=== PATIENT | male | born 1945 | race American Indian/Alaskan Native ===

== ENCOUNTER 2017-12-22 12:12 | Outpatient (CLI) | payer MEDICARE, OTHER ==
--- NOTE | 2017-12-22 22:45 | Cat Scan Report ---
FINAL REPORT EXAM: CT CHEST WO CON HISTORY: RETROCARDIAC DENSITY/R09.89 TECHNIQUE: CT chest without contrast PRIORS: None. FINDINGS: There is partial limitation due to motion artifact. No evidence of mediastinal pathologic lymph node enlargement Heart and great vessels are unremarkable. The aorta is normal in caliber. No focal pulmonary infiltrate identified. No pleural fluid collection seen. No acute pulmonary abnormality noted. Dense material noted layering within the gallbladder. IMPRESSION: No acute abnormality identified in the chest Sludge or small stones within the gallbladder noted
== END 2017-12-22 12:13 | disposition home or self-care (01) ==
LOC: CT 12:12
PROVIDERS: ATTEND Internal Medicine Pulmonary Disease
DX: R09.89 Other specified symptoms and signs involving the circulatory and respiratory systems (principal)
CPT/HCPCS: 71250